=== PATIENT | male | born 1955 | race Caucasian/White ===

== ENCOUNTER 2019-10-13 17:56 | Inpatient (IN) | payer MEDICAID ==
[~2019-10-13] VITALS: Ht 167.6 cm; Wt 99.8 kg
--- NOTE | 2019-10-13 17:56 | NUR ---
BIB [facility] 89 FROM HOME, L SIDED PRESSURE-LIKE CHEST PAIN X 2 HRS RADIATING TO L SHOULDER AND L UPPER ARM AND BACK 5/10 PS,ASA 324 MG AND NTG SPRAY X 1 GIVEN, ALSO C/O HEADACHE. TO ER BED 9, HOOKED TO DENTURE CONTOUR WIRE SPECIALIST AND POX, CHANGED TO HOSP GOWN, WARM BLABKET PROVIDED, PATIENT AO x 4, BREATHING EVEN AND UNLABORED, R SIDED WEAKNESS, USING CANE, RESIDUAL OF PREVIOUS STROKE. AWAITING MD BALLARD
--- NOTE | 2019-10-13 18:08 | NUR ---
TILE LAYER AT BEDSIDE
--- NOTE | 2019-10-13 18:19 | NUR ---
DR AGUERO AT BEDSIDE
[2019-10-13 18:33] LABS: BASOPHILS # (AUTO) 0.1 /CMM (0.0-0.2); BASOPHILS % (AUTO) 0.7 % (0.0-2.0); EOSINOPHILS % (AUTO) 1.8 % (0.0-6.0); HEMATOCRIT 50 % (39-51); HEMOGLOBIN 16.8 g/dL (13.5-17.5); LYMPHOCYTES # (AUTO) 2.3 /CMM (0.8-4.8); MEAN CORPUSCULAR HGB CONC 34 g/dl (31.0-36.0); MEAN CORPUSCULAR VOLUME 93 fL (80-96); MONOCYTES # (AUTO) 0.8 /CMM (0.1-1.30); MONOCYTES % (AUTO) 7.4 % (2.0-12.0); NEUTROPHILS # (AUTO) 7.6 /CMM (1.8-8.9); NEUTROPHILS % (AUTO) 69.1 % (43.0-81.0); PLATELET COUNT (AUTO) 112 /CMM (150-450); RED BLOOD CELL COUNT(AUTO) 5.36 MIL/uL (4.5-6.0)
[2019-10-13] MEDS ORDERED: LISI2.5T2 PO (18:49)
[2019-10-13] MEDS ORDERED: INSU100V3 SQ (18:49)
[2019-10-13] MEDS ORDERED: EMPA10TA PO (18:49)
[2019-10-13] MEDS ORDERED: NITR0.4T48 SL (18:49)
[2019-10-13] MEDS ORDERED: TIOT18CA3 IH (18:49)
[2019-10-13] MEDS ORDERED: ASPI-1169 PO (18:49)
[2019-10-13] MEDS ORDERED: INSU100V7 SQ (18:49)
[2019-10-13] MEDS ORDERED: FLUO10CA26 PO (18:49)
[2019-10-13] MEDS ORDERED: ATOR10TA PO (18:49)
[2019-10-13] MEDS ORDERED: METO25TA20 PO (18:49)
[2019-10-13] MEDS ORDERED: GABA-534 PO (18:49)
[2019-10-13] MEDS ORDERED: ALBU2.5V38 IH (18:49)
[2019-10-13 18:52] LABS: ALBUMIN 3.8 g/dL (3.4-5.0); BILIRUBIN,DIRECT 0.1 mg/dL (0.0-0.2); BILIRUBIN,TOTAL 0.5 mg/dL (0.2-1.0); CALCIUM, SERUM 8.9 mg/dL (8.5-10.1); CREATININE 0.9 mg/dL (0.6-1.3); POTASSIUM 3.9 mmol/L (3.5-5.1); TOTAL PROTEIN, SERUM 7.6 g/dL (6.4-8.2)
--- NOTE | 2019-10-13 19:18 | NUR ---
REPORT GIVEN TO HILDA RUCKER FOR AF[facility]
--- NOTE | 2019-10-13 19:31 | NUR ---
REPORT RECEIVED FROM ALKA SOTO FOR [facility]
[2019-10-13] MEDS ORDERED: NITROGLYCERIN PACKET 1 GM PACKET ONE (19:50)
[2019-10-13] MEDS ORDERED: ASPIRIN 325 MG TABLET ONE (19:51)
[2019-10-13] MEDS ORDERED: ASPIRIN 325 MG TABLET PO ONE (20:00)
[2019-10-13] MEDS ORDERED: IV NS 0.9% 500 ML BAG IV ONE (20:00)
[2019-10-13] MEDS ORDERED: NITROGLYCERIN PACKET 1 GM PACKET TOP ONE (20:00)
--- NOTE | 2019-10-13 21:19 | NUR ---
TELE BED 119-2
--- NOTE | 2019-10-13 21:30 | NUR ---
REPORT GIVEN TO MORENO RUCKER
[2019-10-13] MEDS ORDERED: ALBUTEROL FS 2.5 MG/3 ML VIAL.NEB IH PRN (22:30)
[2019-10-13] MEDS ORDERED: NITROGLYCERIN 0.4 MG/TAB BOTTLE SL PRN ×2 (22:30→23:00)
[2019-10-13] MEDS ORDERED: ONDANSETRON HCL/PF 4 MG/2 ML VIAL IVP PRN (23:00)
[2019-10-13] MEDS ORDERED: CARVEDILOL 6.25 MG TABLET PO SCH (23:00)
[2019-10-14 00:15] VITALS: BP 127/81
--- NOTE | 2019-10-14 00:15 | NUR ---
TELE1 RN NOTES RECEIVED FROM ER PER ZUNILDA THIS 63 YO MALE,ALERT,ORIENTED X3-4,WITH CHIEF COMPLAINTS OF CHEST PAIN X 2HOURS.WITY KNOWN HX OF HTN,DM,HERNIA REPAIR,BOWEL OBSTRUCTION,CVA.NOTED RIGHT SIDED WEAKNESS UPPER AND LOWER EXTREMITIES.SALINE LOCK RIGHT AC INTACT AND PATENT.FALL PRECAUTION OBSERVED,BED ALARM TRIGGERED.CALL LIGHT IN REACH,NEEDS ANTICIPATED.
--- NOTE | 2019-10-14 00:32 | NUR ---
PT TRANSFERRED TO [facility] IN STABLE CONDITION
[2019-10-14] MEDS: MORPHINE SULFATE INJ 2 MG/ML DISP.SYRIN IV PRN ×2 (01:17→06:47)
--- NOTE | 2019-10-14 01:17 | NUR ---
TELE1 RN NOTES C/O CHEST PAIN 5/10 ON PAIN SCALE,MEDICATED WITH MORPHINE 1MG IV ORDERED,TO BE GIVEN Q 30 MINUTES X 2 DOSES.
--- NOTE | 2019-10-14 02:00 | NUR ---
TELE1 RN NOTES PATIENT SOUND ASLEEP.
[2019-10-14] MEDS ORDERED: DEXTROSE 50%-WATER 50 ML DISP.SYRIN IV PRN (02:30)
[2019-10-14 04:00] VITALS: BP 112/66
--- NOTE | 2019-10-14 06:47 | NUR ---
TELE1 RN NOTES AWAKE THIS TIME,C/O HEADACHE,ON NITRO PATCH,WITH SLIGHT CHEST PAIN NON RADIATING 6/10 ON PAIN SCALE.MEDICATED WITH MORPHINE 1MG IV ORDERED Q 30 MINUTES X 2 DOSES,WILL MONITOR FOR RELIEF.
[2019-10-14 06:51] LABS: BASOPHILS # (AUTO) 0.1 /CMM (0.0-0.2); BASOPHILS % (AUTO) 0.6 % (0.0-2.0); EOSINOPHILS % (AUTO) 2.7 % (0.0-6.0); HEMATOCRIT 48 % (39-51); HEMOGLOBIN 16.5 g/dL (13.5-17.5); LYMPHOCYTES % (AUTO) 22.2 % (20.0-44.0); MEAN CORPUSCULAR HGB CONC 34 g/dl (31.0-36.0); MEAN CORPUSCULAR VOLUME 92 fL (80-96); MONOCYTES # (AUTO) 0.6 /CMM (0.1-1.30); MONOCYTES % (AUTO) 7.1 % (2.0-12.0); NEUTROPHILS # (AUTO) 5.9 /CMM (1.8-8.9); NEUTROPHILS % (AUTO) 67.4 % (43.0-81.0); PLATELET COUNT (AUTO) 107 /CMM (150-450); RED BLOOD CELL COUNT(AUTO) 5.27 MIL/uL (4.5-6.0); WHITE BLOOD COUNT (AUTO) 8.8 K/uL (4.3-11.0)
--- NOTE | 2019-10-14 07:00 | NUR ---
STREET LIGHT CLEANER NOTES SR-74 ON TELE MONITOR,BLOOD SUGAR CHECK 162,WILL COVER WITH MILD SLIDING SCALE.WILL MONITOR FOR CHEST PAIN.
[2019-10-14 07:12] LABS: CALCIUM, SERUM 8.6 mg/dL (8.5-10.1); CREATININE 0.8 mg/dL (0.6-1.3); PHOSPHORUS 3.5 mg/dL (2.5-4.9)
--- NOTE | 2019-10-14 07:21 | NUR ---
FIELD SERVICE COORDINATOR OPENING NOTES RECEIVED PATIENT IN BED, A/O X4, VERBALLY RESPONSIVE AND ABLE TO MAKE NEEDS KNOWN. DENIES ANY CHEST PAIN OR DISCOMFORT AT THE MOMENT. ON OXYGEN VIA NASAL CANNULA @ 2L, SATURATING WELL. NO SOB NOTED. IV ACCESS ON L AC HEPLOCK #18, INTACT, PATENT AND FLUSHED WELL. NO SIGNS OF INFILTRATION. ON TELE MONITOR READING SR, HR 86 BPM. SAFETY MEASURES IN PLACE, CALL LIGHT WITHIN REACH, WILL CONTINUE TO MONITOR.
--- NOTE | 2019-10-14 07:41 | NUR ---
RN NOTES RECEIVED A CALL FROM LAB ABOUT CRITICAL LEVEL OF TROPONIN [phone]. DR CACERES MADE AWARE
[2019-10-14] MEDS: BLOOD SUGAR DIAGNOSTIC 1 EACH STRIP IN SCH ×4 (07:51→22:45)
[2019-10-14 08:00] VITALS: BP 128/68
[2019-10-14] MEDS ORDERED: IPRATROPIUM NEB FS 0.5 MG/2.5 ML AMPUL.NEB NEB SCH (08:00)
[2019-10-14] MEDS ORDERED: IOHEXOL-350 100 ML VIAL IV ONE (09:06)
[2019-10-14] MEDS ORDERED: IV NS 0.9% 250 ML IV ONE (09:07)
[2019-10-14] MEDS ORDERED: NITROGLYCERIN 4.9 GM SPRAY ONE (09:18)
[2019-10-14] MEDS ORDERED: METOPROLOL TARTRATE INJ 5 MG/5 ML AMPUL ONE ×2 (09:18→10:14)
[2019-10-14] MEDS ORDERED: METOPROLOL TARTRATE INJ 5 MG/5 ML AMPUL IVP PRN (09:30)
[2019-10-14] MEDS ORDERED: NITROGLYCERIN 0.4 MG/TAB BOTTLE SL ONE (09:30)
--- NOTE | 2019-10-14 10:27 | NUR ---
RN NOTES PATIENT JUST CAME BACK FROM CT ANGIOGRAM
[2019-10-14] MEDS: GABAPENTIN 300 MG CAPSULE PO SCH ×3 (10:35→17:48)
[2019-10-14] MEDS: CARVEDILOL 6.25 MG TABLET PO SCH ×2 (10:35→21:16)
[2019-10-14] MEDS: ASPIRIN 81 MG TAB.CHEW PO SCH (10:35)
[2019-10-14] MEDS: INSULIN REGULAR, HUMAN 100 UNIT/ML 3 ML VIAL SQ PRN ×3 (10:39→17:47)
[2019-10-14] MEDS: INSULIN GLARGINE, 100 UNIT/ML CARTRIDGE SQ SCH (10:40)
[2019-10-14] MEDS: ENOXAPARIN SODIUM 100 MG/ML DISP.SYRIN SQ SCH ×2 (10:41→21:17)
[2019-10-14 12:00] VITALS: BP 133/76
[2019-10-14 16:00] VITALS: BP 126/72
--- NOTE | 2019-10-14 19:19 | NUR ---
RN CLOSING NOTES PATIENT IN BED, ASLEEP. IN NO APPARENT DISTRESS NOTED. ON OXYGEN VIA NASAL CANNULA @2L , SATURATING WELL. NO SOB NOTED. IV ACCESS ON R AC #18, INTACT, PATENT AND FLUSHED WELL. NO CHANGE OF CONDITION DURING AM SHIFT. SAFETY MEASURES IN PLACED, BED IN LOWEST POSITIONED AND LOCKED. CALL LIGHT WITHIN REACH. CALL LIGHT WITHIN REACH. ENDORSED TO PM RN FOR FAWN
--- NOTE | 2019-10-14 19:25 | NUR ---
TELE/RN notes Patient received in bed, awake, A/O x4, denies any pain. In no acute distress. Breathing even and unlabored. No SOB. HOB semi dumont. On O2 2LPM via NC. Saturating well. IV site with no S/S of infection/Infiltration. Safety maintained, bed at the lowest locked position. Call light within reach. Will continue to monitor as per plan of care.
[2019-10-14 20:00] VITALS: BP 105/76
--- NOTE | 2019-10-14 22:45 | NUR ---
Patient refused blood sugar check. He is said "i want to sleep, dont disturb" Risk and benefits explained. Still refused
[2019-10-15] VITALS: BP 123/74
[2019-10-15 04:00] VITALS: BP 112/81
[2019-10-15 07:00] LABS: CALCIUM, SERUM 8.8 mg/dL (8.5-10.1); CREATININE 0.9 mg/dL (0.6-1.3); POTASSIUM 3.8 mmol/L (3.5-5.1)
[2019-10-15 07:07] LABS: BASOPHILS % (AUTO) 0.6 % (0.0-2.0); EOSINOPHILS % (AUTO) 2.7 % (0.0-6.0); HEMATOCRIT 50 % (39-51); HEMOGLOBIN 16.7 g/dL (13.5-17.5); LYMPHOCYTES # (AUTO) 2.1 /CMM (0.8-4.8); LYMPHOCYTES % (AUTO) 25.1 % (20.0-44.0); MEAN CORPUSCULAR HGB CONC 33 g/dl (31.0-36.0); MEAN CORPUSCULAR VOLUME 92 fL (80-96); MONOCYTES # (AUTO) 0.6 /CMM (0.1-1.30); MONOCYTES % (AUTO) 6.6 % (2.0-12.0); NEUTROPHILS # (AUTO) 5.4 /CMM (1.8-8.9); PLATELET COUNT (AUTO) 109 /CMM (150-450); RED BLOOD CELL COUNT(AUTO) 5.46 MIL/uL (4.5-6.0); WHITE BLOOD COUNT (AUTO) 8.3 K/uL (4.3-11.0)
--- NOTE | 2019-10-15 07:29 | NUR ---
TELE/RN notes Patient remained in bed, awake, A/O x4, denies any pain. In no acute distress. Breathing even and unlabored. No SOB. HOB semi dumont. On O2 2LPM via NC. Saturating well. IV site with no S/S of infection/Infiltration. Safety maintained, bed at the lowest locked position. Call light within reach. Will Endorse to AM shift nurse for FAWN.
--- NOTE | 2019-10-15 07:30 | NUR ---
RN OPENING NOTE Received patient awake in bed. Appears calm and relaxed. on NC 2L tolerating well. Sinus Rhythm reading on monitor. Skin is intact. No co pain or discomfort. No co chest pain. Safety measures reinforced. Call light within reach. Bed on locked and lowest position. Will cont to monitor.
[2019-10-15 08:00] VITALS: BP 124/74
[2019-10-15] MEDS ORDERED: VALSARTAN 80 MG TABLET PO SCH (09:00)
[2019-10-15] MEDS: ASPIRIN 81 MG TAB.CHEW PO SCH (09:02)
[2019-10-15] MEDS: GABAPENTIN 300 MG CAPSULE PO SCH ×2 (09:02→12:05)
[2019-10-15 09:03] VITALS: BP 124/78
[2019-10-15] MEDS: BLOOD SUGAR DIAGNOSTIC 1 EACH STRIP IN SCH ×2 (09:03→12:08)
[2019-10-15] MEDS: CARVEDILOL 6.25 MG TABLET PO SCH (09:03)
[2019-10-15] MEDS: INSULIN REGULAR, HUMAN 100 UNIT/ML 3 ML VIAL SQ PRN ×2 (09:04→12:14)
[2019-10-15] MEDS: INSULIN GLARGINE, 100 UNIT/ML CARTRIDGE SQ SCH (09:09)
[2019-10-15] MEDS ORDERED: VALS80TA2 PO (10:06)
--- NOTE | 2019-10-15 13:00 | NUR ---
JET ENGINE MECHANIC NOTE Patient was given discharge instructions. Gave paperwork. Removed IV line no bleeding. Called taxi for transportation. Walked patient to the lobby in stable condition.
== END 2019-10-15 13:11 | disposition home or self-care (01) | DRG 190 ==
LOC: ER 17:59 → TELE1 21:37
PROVIDERS: ADMIT Internal Medicine; ATTEND Nurse Practitioner Acute Care
DX: I21.4 Non-ST elevation (NSTEMI) myocardial infarction (principal); E11.9 Type 2 diabetes mellitus without complications; E86.0 Dehydration; I10 Essential (primary) hypertension; Z86.73 Personal history of transient ischemic attack (TIA), and cerebral infarction without residual deficits; E78.5 Hyperlipidemia, unspecified; E66.9 Obesity, unspecified; F17.210 Nicotine dependence, cigarettes, uncomplicated; Z79.4 Long term (current) use of insulin; Z68.35 Body mass index [BMI] 35.0-35.9, adult; Z71.6 Tobacco abuse counseling; Z71.3 Dietary counseling and surveillance; Z95.5 Presence of coronary angioplasty implant and graft; I25.110 Atherosclerotic heart disease of native coronary artery with unstable angina pectoris
CPT/HCPCS: 36415; 71045-TC; 75574; 80048-TC; 80061-TC; 80076-TC; 82962-TC; 83690-TC; 83735-TC; 84100-TC; 84484-TC; 85025-TC; 87081-TC; 93307-TC; G0378; J1650; J1815; J2270; J3490; J7040; J7050; Q9967